=== PATIENT | female | born 1970 | race Caucasian/White ===

== ENCOUNTER 2021-02-24 11:41 | Emergency (ER) | payer OTHER ==
[~2021-02-24] VITALS: Ht 162.6 cm; Wt 96.6 kg
[2021-02-24 12:20] LABS: URINE BILIRUBIN NEGATIVE (Negative); URINE BLOOD NEGATIVE (Negative); URINE CLARITY CLEAR; URINE COLOR YELLOW; URINE GLUCOSE-RANDOM* NEGATIVE (Negative); URINE KETONES NEGATIVE (Negative); URINE LEUKOCYTES-REFLEX TRACE (Negative); URINE NITRITE-REFLEX NEGATIVE (Negative); URINE PROTEIN (DIPSTICK) NEGATIVE (Negative); URINE SPECIFIC GRAVITY <= 1.005 (1.005-1.035); URINE UROBILINOGEN 0.2 E.U./dl (0.2-1.0)
--- NOTE | 2021-02-24 14:44 | EKG ---
[place] [address] [facility] [place] [address] ELECTROCARDIOGRAM REPORT Name: FRANKY STEPHENSON Room #: REG [facility]#: [id number] Admission: 02/24/21 Attend Phys: Discharge: Date of : 74 Report #: [id number] [facility] ED Test Date: 2021-02-24 Test Time: 11:52:23 Pat Name: FRANKY STEPHENSON Department: Room: Gender: F Trim Technician: FRANCK : 1970 Requested By: Oliver Parry Order Number: [id number] MD: Jose Romano Measurements Intervals [place] Rate: 71 P: 14 IA: 135 QRS: 42 QRSD: 100 T: 58 QT: 384 QTc: 418 Interpretive Statements Sinus rhythm Multiple ventricular premature complexes Compared to ECG 06/14/2013 18:14:38 Ventricular premature complex(es) now present Electronically Signed On 02-24-2021 14:44:30 CDT by Jose Romano [email or web address] <ELECTRONICALLY SIGNED> By: Jose Romano MD, [facility] 02/24/21 1444 1152 1152 Jose Romano MD, FACC /EPI
[2021-02-24 15:27] LABS: ANION GAP 8 mmol/L (7-16); BUN 6 mg/dL (7-18); CALCIUM 8.1 mg/dL (8.5-10.1); CHLORIDE 109 mmol/L (98-107); CO2 26 mmol/L (21-32); CREATININE 0.9 mg/dL (0.6-1.0); GLUCOSE 82 mg/dL (74-106); POTASSIUM 3.6 mmol/L (3.5-5.1); SODIUM 143 mmol/L (136-145)
[2021-02-24 15:36] LABS: TROPONIN-I <0.06 ng/mL (<0.06)
[2021-02-24 16:08] VITALS: BP 94/64
== END 2021-02-24 16:08 | disposition home or self-care (01) ==
LOC: ER 11:41
PROVIDERS: Nurse Practitioner
DX: R07.89 Other chest pain (principal); I10 Essential (primary) hypertension; F17.210 Nicotine dependence, cigarettes, uncomplicated; Z98.890 Other specified postprocedural states